=== PATIENT | male | born 1995 | race Two or more races ===

== ENCOUNTER 2017-02-28 12:29 | Emergency (ER) | payer OTHER ==
[2017-02-28 12:52] VITALS: BP 136/72; PULSE 72; RESP 18; TEMP 97; O2SAT 100
[2017-02-28] MEDS ORDERED: Lidocaine 2% w Epi 1:100,000 Inj IJ ONE (13:17)
--- NOTE | 2017-02-28 13:44 | ED PDOC ---
HPI: General Adult Time Seen by Provider: 02/28/17 13:00 Chief Complaint (Nursing): Abnormal Skin Integrity Chief Complaint (Provider): Abnormal Skin integrity History Per: Patient History/Exam Limitations: no limitations Onset/Duration Of Symptoms: Days (x2 weeks) Current Symptoms Are (Timing): Still Present Additional History Per: Patient Additional Complaint(s): Reji Sheffield is a 21 year old male with a past history of hypertension who presents to the ED for evaluation of a right inner swollen leg onset x2 weeks prior to arrival. Patient denies any associated symptoms including fever or chills. Past Medical History Reviewed: Historical Data, Nursing Documentation, Vital Signs Vital Signs: Last Vital Signs Temp 97 F L 02/28/17 12:50 Pulse 72 02/28/17 12:50 Resp 18 02/28/17 12:50 BP 136/72 02/28/17 12:50 Pulse Ox 100 02/28/17 14:01 - Medical History PMH: HTN (non compliant) - Surgical History Surgical History: No Surg Hx - Family History Family History: States: No Known Family Hx - Home Medications Home Medications: Ambulatory Orders Medication Instructions Recorded Clindamycin [Cleocin] 300 mg PO QID #40 cap 02/28/17 - Allergies Allergies/Adverse Reactions: Allergies Allergy/AdvReac Type Severity Reaction Status Date / Time No Known Allergies Allergy Verified 02/28/17 12:50 Review of Systems ROS Statement: Except As Marked, All Systems Reviewed And Found Negative Constitutional: Negative for: Fever, Chills Musculoskeletal: Positive for: Leg Pain (Swollen right inner leg) Physical Exam - Reviewed Nursing Documentation Reviewed: Yes Vital Signs Reviewed: Yes - Physical Exam Appears: Positive for: Well, Non-toxic, No Acute Distress Head Exam: Positive for: ATRAUMATIC, NORMAL INSPECTION, NORMOCEPHALIC Skin: Positive for: Normal Color, Warm, Dry Eye Exam: Positive for: Normal appearance ENT: Positive for: Normal ENT Inspection Neck: Positive for: Normal Cardiovascular/Chest: Positive for: Regular Rate, Rhythm, Chest Non Tender. Negative for: Murmur, Tachycardia Respiratory: Positive for: Normal Breath Sounds. Negative for: Wheezing, Respiratory Distress Gastrointestinal/Abdominal: Positive for: Normal Exam, Soft. Negative for: Tenderness Back: Positive for: Normal Inspection Rectal: Positive for: Deferred Extremity: Positive for: Normal ROM, Swelling, Other (Fluctuant abcess inner right thigh) Neurologic/Psych: Positive for: Alert, Oriented - ECG O2 Sat by Pulse Oximetry: 100 (RA) Pulse Ox Interpretation: Normal Medical Decision Making Medical Decision Making: Time: 1300: Impression: Trauma Plan: * I & D Procedure * Re-eval Scribe Attestation: Documented by Susi Clark acting as a scribe for Nellie Boston PA-C. Provider Attestation: All medical record entries made by the Scribe were at my direction and personally dictated by me. I have reviewed the chart and agree that the record accurately reflects my personal performance of the history, physical exam, medical decision making, and the department course for this patient. I have also personally directed, reviewed, and agree with the discharge instructions and disposition. Procedures - Time-Out Type of Procedure: I&D Inner thigh Correct Patient (with visual ID + MR# on ID Band): Yes Correct Procedure: Yes Correct Site Marked: Yes - Incision and Drainage Blade Size: 11 I & D Procedure: sterile drapes applied, sterile dressing applied, gauze wick placed, no betadine prep Progress: 3cc of lighto with EPPI used while tolerated. Disposition - Clinical Impression Clinical Impression: Abscess - Disposition Disposition Time: 14:00 Condition: STABLE Additional Instructions: Packing to be removed in 2 days. Warm compresses. Antibiotics as prescribed. Prescriptions: Clindamycin [Cleocin] 300 mg PO QID #40 cap Instructions: Abscess (ED)
== END 2017-02-28 14:00 | disposition home or self-care (01) ==
LOC: H.ER 12:29
DX: L02.415 Cutaneous abscess of right lower limb (principal); I10 Essential (primary) hypertension

== ENCOUNTER 2017-03-03 11:03 | Emergency (ER) | payer OTHER ==
[2017-03-03 11:09] VITALS: BP 117/55; PULSE 76; RESP 18; TEMP 97; O2SAT 100
[2017-03-03 11:10] VITALS: BMI 25.0
--- NOTE | 2017-03-03 11:48 | ED PDOC ---
HPI: Wound Care - HPI Time Seen by Provider: 03/03/17 11:07 Chief Complaint (Nursing): Wound Check Chief Complaint (Provider): wound check History Per: Patient Exam Limitations: no limitations Onset/Duration Of Symptoms: Days (x 2) Current Symptoms Are (Timing): Still Present Additional Complaint(s): Reji Sheffield is a 21 year old male, with a previous medical history of hypertension, who presents to the ED for a wound check status post an incision and drainage 2 days prior to his left inner thigh. Patient reports mild pain to the area but no fever or chills. Patient has been compliant with medications. PMD: none provided Past Medical History Reviewed: Historical Data, Nursing Documentation, Vital Signs Vital Signs: Last Vital Signs Temp 97 F L 03/03/17 11:09 Pulse 76 03/03/17 11:09 Resp 18 03/03/17 11:09 BP 117/55 L 03/03/17 11:09 Pulse Ox 100 03/03/17 11:09 - Medical History PMH: HTN (non compliant) - Surgical History Surgical History: No Surg Hx - Family History Family History: States: Unknown Family Hx - Home Medications Home Medications: Ambulatory Orders Medication Instructions Recorded Clindamycin [Cleocin] 300 mg PO QID #40 cap 02/28/17 - Allergies Allergies/Adverse Reactions: Allergies Allergy/AdvReac Type Severity Reaction Status Date / Time No Known Allergies Allergy Verified 02/28/17 12:50 Review of Systems ROS Statement: Except As Marked, All Systems Reviewed And Found Negative Constitutional: Negative for: Fever, Chills Physical Exam - Reviewed Nursing Documentation Reviewed: Yes Vital Signs Reviewed: Yes - Physical Exam Appears: Positive for: Well, Non-toxic, No Acute Distress Skin: Positive for: Normal Color, Warm, Dry Cardiovascular/Chest: Positive for: Regular Rate, Rhythm Respiratory: Positive for: CNT, Normal Breath Sounds Extremity: Positive for: Normal ROM, Capillary Refill (< 2 seconds ), Other ( 4cm in diameter with mild erythema and induration to the left inner thigh ). Negative for: Calf Tenderness, Deformity Neurologic/Psych: Positive for: Alert, Oriented - ECG O2 Sat by Pulse Oximetry: 100 (RA ) Pulse Ox Interpretation: Normal Medical Decision Making Medical Decision Making: Initial Impression: Wound check Initial Plan: * physical exam * disposition 11:52 Packing removed with no complications and wound redressed. Patient tolerated procedure well. Scribe Attestation: Documented by Bambi Navarro, acting as a scribe for Elaine Arshad PA-C. Provider Scribe Attestation: All medical record entries made by the Scribe were at my direction and personally dictated by me. I have reviewed the chart and agree that the record accurately reflects my personal performance of the history, physical exam, medical decision making, and the department course for this patient. I have also personally directed, reviewed, and agree with the discharge instructions and disposition. Disposition - Clinical Impression Clinical Impression: Wound check, abscess - Patient ED Disposition Is Patient to be Admitted: No - Disposition Referrals: FAMILY PROVIDER,NO [Primary Care Provider] - Disposition: Routine/Home Disposition Time: 12:22 Condition: STABLE Instructions: Wound Infection (ED)
== END 2017-03-03 12:25 | disposition home or self-care (01) ==
LOC: H.ER 11:03 → SUPCPDRO 11:03 → H.ER 12:25
DX: Z48.00 Encounter for change or removal of nonsurgical wound dressing (principal); I10 Essential (primary) hypertension

== ENCOUNTER 2017-04-14 17:48 | Emergency (ER) | payer OTHER ==
[2017-04-14 17:49] VITALS: BMI 25.0
[2017-04-14 17:56] VITALS: BP 132/57; PULSE 92; RESP 18; TEMP 99.3; O2SAT 98
[2017-04-14] MEDS ORDERED: Sodium Chloride 0.9% 1,000 ML IV STA (18:19)
--- NOTE | 2017-04-14 18:39 | ED PDOC ---
Lower Extremity Pain/Injury Time Seen by Provider: 04/14/17 18:03 Chief Complaint (Nursing): Groin Pain Chief Complaint (Provider): Left Thigh Pain History Per: Patient History/Exam Limitations: no limitations Current Symptoms Are (Timing): Still Present Additional Complaint(s): Reji Sheffield, a 21 year old male, presents to the ED complaining of left thigh pain. The patient states that over the past few days he has been doing heavy squatting and lifting weights but noticed no pain but did feel some soreness but thought it was due to the strenuous exercise. He further states that today while at work he was eating lunch when he felt a ball in his left upper thigh. The the patient reports that he asked his coworker to feel his leg and she too confirmed the presence of a ball in his left upper thigh. He also states that his coworker told him that he may have a hernia. Denies nausea, cough, fevers, chills, testicular pain, leg pain. Pain to the bump. Of note: Patient was recently seen in the ED for an abscess that is now gone. Past Medical History Reviewed: Historical Data, Nursing Documentation, Vital Signs Vital Signs: Last Vital Signs Temp 99.3 F 04/14/17 17:53 Pulse 92 H 04/14/17 17:53 Resp 18 04/14/17 17:53 BP 132/57 L 04/14/17 17:53 Pulse Ox 98 04/14/17 17:53 - Medical History PMH: HTN (non compliant) Denies: Chronic Kidney Disease - Family History Family History: States: Unknown Family Hx - Living Arrangements Living Arrangements: With Family - Social History Current smoker - smoking cessation education provided: No Alcohol: None Drugs: Denies - Home Medications Home Medications: Ambulatory Orders Medication Instructions Recorded Clindamycin [Cleocin] 300 mg PO QID #40 cap 02/28/17 Clindamycin [Cleocin] 300 mg PO QID 7 Days 04/14/17 Ibuprofen [Motrin] 600 mg PO TID 7 Days 04/14/17 - Allergies Allergies/Adverse Reactions: Allergies Allergy/AdvReac Type Severity Reaction Status Date / Time No Known Allergies Allergy Verified 04/14/17 17:52 Review of Systems ROS Statement: Except As Marked, All Systems Reviewed And Found Negative Constitutional: Negative for: Fever, Chills Respiratory: Negative for: Cough Gastrointestinal: Negative for: Nausea, Diarrhea Genitourinary Male: Positive for: Other (Denies testicular pain) Musculoskeletal: Positive for: Leg Pain (L inner thigh) Physical Exam - Reviewed Nursing Documentation Reviewed: Yes Vital Signs Reviewed: Yes - Physical Exam Appears: Positive for: Non-toxic, No Acute Distress Head Exam: Positive for: ATRAUMATIC, NORMAL INSPECTION, NORMOCEPHALIC Skin: Positive for: Normal Color, Warm, Dry Eye Exam: Positive for: Normal appearance, EOMI, PERRL ENT: Positive for: Normal ENT Inspection Neck: Positive for: Normal, Painless ROM, Supple Cardiovascular/Chest: Positive for: Regular Rate, Rhythm, Chest Non Tender. Negative for: Tachycardia Respiratory: Positive for: Normal Breath Sounds. Negative for: Wheezing, Respiratory Distress Gastrointestinal/Abdominal: Positive for: Normal Exam, Bowel Sounds, Soft. Negative for: Tenderness, Guarding, Rebound Male Genital Exam: Negative for: scrotum tenderness (R), scrotum tenderness (L) , testicular tenderness (R), testicular tenderness (L) Back: Positive for: Normal Inspection. Negative for: L CVA Tenderness, R CVA Tenderness Extremity: Positive for: Normal ROM, Tenderness (Tenderness to left thigh with mild erythema but no fluctuance. Elevated area. No induration. ). Negative for: Pedal Edema, Deformity, Swelling Neurologic/Psych: Positive for: Alert, Oriented, Gait - Laboratory Results Result Diagrams: 04/14/17 04:45 04/14/17 04:45 Interpretation Of Abn Labs: 12.1 wbc - ECG O2 Sat by Pulse Oximetry: 98 (RA) Pulse Ox Interpretation: Normal - CT Scan/US ct Other Rad Studies (CT/US): Read By Radiologist Other Rad Interpretation: enlarged lymph node - Progress ED Course And Treament: 2011: No hernia. Possible lymph node enlarged, ? infection. Will rx clinda and tx for infection. AAOx3. Ambulating wit no issues. Medical Decision Making Medical Decision Makin:03 Initial Impression: 21 year old male presenting with tenderness to the left upper extremity Initial Plan: * CT pelvis w/o PO or IV contrast * Comp Metabolic Panel * Udip * CBC * NS 1000ml IV 1000mls/hr * Toradol 30mg IV * Reevaluation Scribe Attestation Documented by Radha Pitts acting as a scribe for Riley iRncon MD. Provider Attestation All medical record entries made by the Scribe were at my direction and personally dictated by me. I have reviewed the chart and agree that the record accurately reflects my personal performance of the history, physical exam, medical decision making, and the department course for this patient. I have also personally directed, reviewed, and agree with the discharge instructions and disposition. Disposition - Clinical Impression Clinical Impression: Lymphadenitis - Patient ED Disposition Is Patient to be Admitted: No Counseled Patient/Family Regarding: Studies Performed, Diagnosis, Need For Followup - Disposition Referrals: [facility] [Outside] - 04/17/17 Disposition: Routine/Home Disposition Time: 20:13 Condition: STABLE Additional Instructions: Return if not better in 3 days. Follow up with the clinic and [facility]. Prescriptions: Clindamycin [Cleocin] 300 mg PO QID 7 Days Ibuprofen [Motrin] 600 mg PO TID 7 Days Instructions: Adenitis (ED) Forms: [facility] (Spanish)
[2017-04-14 18:57] LABS: BASO % 0.3 % (0.0-2.0); EOS # 0.1 K/uL (0.0-0.7); EOS % 0.7 % (0.0-4.0); HEMATOCRIT 38.9 % (35.0-51.0); LYMPH # 1.1 K/uL (1.0-4.3); MEAN CELL VOLUME 86.7 fl (80.0-94.0); MEAN CORPUSCULAR HEMOGLOBIN 29.8 pg (27.0-31.0); MEAN CORPUSCULAR HGB CONC 34.3 g/dL (33.0-37.0); MEAN PLATELET VOLUME 6.6 fl (7.2-11.7); MONO # 0.9 K/uL (0.0-0.8); MONO % 7.2 % (0.0-10.0); NEUT % 82.8 % (50.0-75.0); PLATELET COUNT 249 K/uL (130-400); RED CELL DISTRIBUTION WIDTH 13.2 % (11.5-14.5); WHITE BLOOD COUNT 12.1 K/uL (4.8-10.8)
[2017-04-14 19:09] LABS: ALB/GLOB RATIO 1.4 (1.0-2.1); ALKALINE PHOSPHATASE 76 U/L (38-126); ALT/SGPT 54 U/L (21-72); AST/SGOT 44 U/L (17-59); BILIRUBIN,TOTAL 0.8 mg/dl (0.2-1.3); BLOOD UREA NITROGEN 20 mg/dl (9-20); CALCIUM 9.6 mg/dL (8.4-10.2); CARBON DIOXIDE 27 mmol/L (22-30); CHLORIDE 101 mmol/L (98-107); GFR AFRICAN-AMERICAN > 60; GLUCOSE,RANDOM 97 mg/dL (75-110); POTASSIUM 3.7 MMOL/L (3.6-5.0); SODIUM 139 mmol/l (132-148); TOTAL PROTEIN 8.1 G/DL (6.3-8.2)
--- NOTE | 2017-04-14 19:30 | CT ---
EXAM: CT Pelvis Without Intravenous Contrast CLINICAL HISTORY: 21 years old, male; Pain; Pelvic pain; Additional info: L upper inner thigh abscess vs. Hematoma TECHNIQUE: Axial computed tomography images of the pelvis without intravenous contrast. This CT exam was performed using one or more of the following dose reduction techniques: automated exposure control, adjustment of the mA and/or kV according to patient size, and/or use of iterative reconstruction technique. Coronal and sagittal reformatted images were created and reviewed. EXAM DATE/TIME: 04/14/2017 6:19 PM COMPARISON: No relevant prior studies available. FINDINGS: BOWEL: No acute abnormality of the visualized pelvic bowel loops identified. APPENDIX: Normal appendix is not seen, however, there are no significant inflammatory changes visualized in the expected location of the appendix to suggest appendicitis. Recommend clinical correlation. INTRAPERITONEAL SPACE: No evidence of free intraperitoneal air or fluid. BLADDER: Mild thickening of the bladder wall. REPRODUCTIVE: No acute abnormality of the reproductive organs is seen. BONES/JOINTS: No acute fractures or other acute bony abnormality visualized. Negative. SOFT TISSUES: Best seen on image 30 of series 601, there is a well defined, 3.6 x 2.5 x 1.3 cm oval-shaped, low density masslike area in the left groin soft tissues, most compatible with a mildly enlarged left inguinal lymph node. Multiple, additional smaller bilateral inguinal lymph nodes are seen. There is no evidence of diffuse pathologic lymphadenopathy in the pelvis. No evidence of inguinal or femoral hernia. No evidence of a significant fluid collection or hematoma in the visualized left groin/upper thigh soft tissues. VASCULATURE: No acute abnormality identified on this unenhanced exam LYMPH NODES: See above. IMPRESSION: - Mild bladder wall thickening. This is a nonspecific finding, but can be seen with cystitis. Recommend clinical correlation. - Mildly enlarged left inguinal lymph node, a nonspecific finding. No evidence of diffuse pathologic lymphadenopathy. - See above for remaining findings.
[2017-04-14 20:05] LABS: EOSINOPHIL 1 % (0-7); NEUTROPHIL 77 % (42-75); REACTIVE LYMPHOCYTES 1 % (0-0); TOTAL CELLS COUNTED 100
== END 2017-04-14 20:27 | disposition home or self-care (01) ==
LOC: H.ER 17:48
DX: I88.9 Nonspecific lymphadenitis, unspecified (principal); I10 Essential (primary) hypertension